=== PATIENT | male | born 1990 | race Caucasian/White ===

== ENCOUNTER 2021-03-03 22:23 | Emergency (ER) | payer OTHER, MEDICAID ==
[~2021-03-03] VITALS: Ht 182.9 cm; Wt 111.1 kg
[2021-03-03 23:01] VITALS: BP 150/93
== END 2021-03-03 23:58 | disposition left against medical advice (07) ==
LOC: M.ERS 22:23
DX: L02.211 Cutaneous abscess of abdominal wall (principal); Z53.21 Procedure and treatment not carried out due to patient leaving prior to being seen by health care provider; Z90.89 Acquired absence of other organs